=== PATIENT | male | born 1950 | race Caucasian/White ===

== ENCOUNTER 2021-11-09 14:03 | Emergency (ER) | payer MEDICARE, OTHER, SELFPAY ==
--- NOTE | 2021-11-09 14:10 | ED.WOUNDLAC ---
HPI - Wound/Laceration General Chief Complaint: Wound/Laceration Stated Complaint: L FINGER LACERATION Time Seen by Provider: 11/09/21 14:20 Source: patient, RN notes reviewed and old records reviewed Mode of arrival: ambulatory Limitations: no limitations History of Present Illness HPI narrative: 71-year-old male presents to [facility] care with complaints of laceration to the fifth left finger dorsal aspect at the PIP joint which occurred shortly prior to arrival when he was using a band saw at home. Patient has 2.5cm semi lunar type of wound to anterior aspect of the left 5th finger, he is able to bend finger without difficulty and denies any tingling or numbness to his left 5th finger. Patient states that his tetanus is not up to date. Patient has controlled bleeding to his 5th left finger with pressure to wound. Onset (ago): minute(s) Extremity Location: Left: hand (Fifth finger dorsal aspect PIP area) Place: home Patient tetanus UTD: No Context: accidental Associated symptoms: none Treatments prior to arrival: bandage Related Data Home Medications Medication Instructions Recorded Confirmed albuterol sulfate 11/09/21 albuterol sulfate [ProAir HFA] INHALATION 11/09/21 cyanocobalamin (vitamin B-12) 11/09/21 dexlansoprazole [Dexilant] mg 11/09/21 doxazosin mg 11/09/21 fluoxetine mg 11/09/21 fluticasone propion-salmeterol INHALATION 11/09/21 [Wixela Inhub] indapamide mg 11/09/21 losartan 11/09/21 montelukast mg 11/09/21 mupirocin TOPICAL 11/09/21 Allergies Allergy/AdvReac Type Severity Reaction Status Date / Time No Known Allergies Allergy Verified 11/09/21 14:09 Review of Systems Review of Systems: CONSTITUTIONAL: Denies fever, chills, or sweats. EYES: Denies visual changes, redness, or discharge. ENT: Denies rhinorrhea, congestion, sore throat, or otalgia. CARDIOVASCULAR: Denies chest pain, palpitations, or edema. RESPIRATORY: Denies cough or dyspnea. GASTROINTESTINAL: Denies abdominal pain, nausea, vomiting, or diarrhea. GENITOURINARY: Denies dysuria or hematuria. SKIN: Denies rash or itching, positive for laceration to the left 5th finger. MUSCULOSKELETAL: Denies back pain, joint pain, or myalgia. NEUROLOGIC: Denies headache, numbness, or weakness. PSYCHIATRIC: Positive history of anxiety or depression. All systems reviewed & are unremarkable except as noted in HPI and below PMFSH Past Medical History Medical History (Updated 11/09/21 @ 15:37 by Karol Olmedo NP) Anxiety and depression Asthma Barretts esophagus Bronchitis Cancer of esophagus Eczema GERD (gastroesophageal reflux disease) Hypertension Surgical History Surgical History (Updated 11/09/21 @ 15:19 by Karol Olmedo NP) History of esophageal surgery Social History Social History (Updated 11/09/21 @ 15:17 by Karol Olmedo NP) Smoking status: Former smoker Additional smoking assessment comments: quit in his early 30's Alcohol intake: unknown Substance use: never Living arrangements: with family Gender identity (if verbalized by the patient): Male Comments At time of signature, agree with nursing past medical, surgical, social and family history. There is no relevant family history pertinent to the presenting complaint Exam Narrative: GENERAL: Well-appearing, well-nourished, and in no acute distress. HEAD: Normocephalic, atraumatic. EYES: PERRLA and EOMI. ENT: Nares clear, no rhinorrhea or epistaxis. Mucous membranes moist. NECK: Supple. no lymphadenopathy CHEST: Clear to auscultation. No respiratory distress.SAO2 99% on room air HEART: Regular rate and rhythm. No murmur heard. Normal peripheral pulses. ABDOMEN: Soft, nontender, nondistended, normal active bowel sounds. EXTREMITIES: Normal range of motion. No edema. SKIN: Warm, dry, no rash.2.5cm semi lunar laceration to dorsal aspect of 5th left finger at PIP joint area. Circulation sensation and mobility intact to his left 5th finger. NEUR
[2021-11-09 14:13] VITALS: BP 152/92; PULSE 72; RESP 20; TEMP 36.4; O2SAT 99
[2021-11-09] MEDS: TETANUS,DIPHTHERIA,AC PERTUSSIS ADULT (0.5 ML) BOOSTRIX IM (14:25)
== END 2021-11-09 15:05 | disposition home or self-care (01) ==
PROVIDERS: Emergency Provider Registered Nurse
DX: S61.217A Laceration without foreign body of left little finger without damage to nail, initial encounter (principal); W31.2XXA Contact with powered woodworking and forming machines, initial encounter; Z23 Encounter for immunization; Z87.891 Personal history of nicotine dependence; J45.909 Unspecified asthma, uncomplicated; K22.70 Barrett's esophagus without dysplasia; K21.9 Gastro-esophageal reflux disease without esophagitis; I10 Essential (primary) hypertension; Z85.01 Personal history of malignant neoplasm of esophagus; Z85.89 Personal history of malignant neoplasm of other organs and systems
CPT/HCPCS: 12001; 90471; 90715; 99202; G0463

== ENCOUNTER 2021-11-20 10:03 | Emergency (ER) | payer MEDICARE, OTHER, SELFPAY ==
--- NOTE | 2021-11-20 10:12 | ED.SKABFB ---
HPI - Skin/Abscess/Foreign Bdy General Chief complaint: Wound/Laceration Stated complaint: Removal of stitches. Time Seen by Provider: 11/20/21 10:19 Source: patient and RN notes reviewed Mode of arrival: ambulatory Limitations: no limitations History of Present Illness HPI narrative: 71-year-old male presents for removal of sutures. Reports he he had sutures placed 11 days ago to the fifth digit of his left hand. Reports the wound is healed however is slightly red, swollen, tender. He denies any other complications or complaints. MD complaint: other (suture removal) Related Data Home Medications Medication Instructions Recorded Confirmed albuterol sulfate [ProAir HFA] 2 puff INHALATION Q4-5H PRN 11/09/21 11/09/21 cyanocobalamin (vitamin B-12) 1,000 mcg SUBCUT WEEKLY 11/09/21 11/09/21 dexlansoprazole [Dexilant] 60 mg PO DAILY 11/09/21 11/09/21 doxazosin 4 mg PO DAILY 11/09/21 11/09/21 fluoxetine 20 mg PO DAILY 11/09/21 11/09/21 fluticasone propion-salmeterol 1 inh INHALATION DAILY 11/09/21 11/09/21 [Wixela Inhub] indapamide 2.5 mg PO DAILY 11/09/21 11/09/21 losartan 100 mg PO DAILY 11/09/21 11/09/21 montelukast 10 mg PO DAILY 11/09/21 11/09/21 mupirocin 1 applic TOPICAL DAILY 11/09/21 11/09/21 levofloxacin 500 mg PO BID 11/20/21 11/20/21 Allergies Allergy/AdvReac Type Severity Reaction Status Date / Time No Known Allergies Allergy Verified 11/20/21 10:15 Review of Systems Review of Systems: CONSTITUTIONAL: Denies malaise, chills, sweats, or fever. EYES: Denies redness, or discharge. ENT: Denies rhinorrhea, congestion, swollen lips, swollen tongue CARDIOVASCULAR: Denies chest pain, palpitations, or edema. RESPIRATORY: Denies cough or dyspnea. GASTROINTESTINAL: Denies abdominal pain, nausea, vomiting SKIN: Reports 6 intact sutures to the fifth digit of the left hand, reports mild redness, tenderness, swelling surrounding the wound MUSCULOSKELETAL: Denies joint painor myalgia. NEUROLOGIC: Denies headache. All systems reviewed & are unremarkable except as noted in HPI and below PMFSH Past Medical History Medical History (Updated 11/20/21 @ 10:24 by Telma Dykes NP) Anxiety and depression Asthma Barretts esophagus Bronchitis Cancer of esophagus Eczema GERD (gastroesophageal reflux disease) Hypertension Surgical History Surgical History (Updated 11/09/21 @ 15:19 by Karol Olmedo NP) History of esophageal surgery Social History Social History (Updated 11/09/21 @ 15:17 by Karol Olmedo NP) Smoking status: Former smoker Additional smoking assessment comments: quit in his early 30's Alcohol intake: unknown Substance use: never Gender identity (if verbalized by the patient): Male Comments At time of signature, agree with nursing past medical, surgical, social and family history. There is no relevant family history pertinent to the presenting complaint Exam Narrative: GENERAL: Well-appearing, well-nourished, and in no acute distress. HEAD: Normocephalic, atraumatic. EYES: Sclera clear ENT: Mucous membranes moist. NECK: Supple. CHEST: Clear to auscultation. No respiratory distress. HEART: Regular rate and rhythm. SKIN: Warm, dry. 6 intact sutures noted to the of the left hand over the MIP joint. Very mild erythema edema induration noted surrounding the wound. NEURO: Alert and oriented x3. PSYCH: Normal mood and affect Course Course Emergency Course: Discussed with patient possible use of antibiotics for the mild erythema, induration, edema surrounding the wound. Patient is currently on a course of levofloxacin for an unrelated infection. At this time through shared decision making decided the patient will not be treated with a course of antibiotics for the wound, will treat the wound with warm soaks without cider vinegar and return if symptoms worsen or do not improve. Patient is aware of diagnosis, understands and agrees to treatment plan. Anticipatory guidance given. Aaron
[2021-11-20 10:15] VITALS: BP 155/90; PULSE 70; RESP 16; TEMP 36.4; O2SAT 98
[2021-11-20 10:17] VITALS: BP 155/90; PULSE 70; RESP 16; TEMP 36.4; O2SAT 98
== END 2021-11-20 10:25 | disposition home or self-care (01) ==
PROVIDERS: Emergency Provider Nurse Practitioner
DX: S61.217D Laceration without foreign body of left little finger without damage to nail, subsequent encounter (principal); X58.XXXD Exposure to other specified factors, subsequent encounter; J45.909 Unspecified asthma, uncomplicated; K22.70 Barrett's esophagus without dysplasia; K21.9 Gastro-esophageal reflux disease without esophagitis; I10 Essential (primary) hypertension; Z85.01 Personal history of malignant neoplasm of esophagus; Z87.891 Personal history of nicotine dependence; F41.9 Anxiety disorder, unspecified; F32.9 Major depressive disorder, single episode, unspecified
CPT/HCPCS: 99211; G0463